=== PATIENT | male | born 1960 | race Caucasian/White ===

== ENCOUNTER 2019-07-30 10:09 | Emergency (ER) | payer OTHER ==
[~2019-07-30] VITALS: Ht 172.7 cm; Wt 73.5 kg
[~2019-07-30 10:09] MED LIST: ZETIA10 MG; [UNRECOGNIZED DRUG - OTHER]
[2019-07-30] MEDS ORDERED: LAMICTAL5 MG PO (11:25)
[2019-07-30] MEDS ORDERED: WELLBUTRIN SR150 MG PO (11:25)
[2019-07-30] MEDS ORDERED: CRESTOR10 MG PO (11:25)
== END 2019-07-30 19:23 | disposition home or self-care (01) ==
LOC: ER 10:09
DX: K31.89 Other diseases of stomach and duodenum (principal); M54.89 Other dorsalgia